=== PATIENT | female | born 1945 | race Two or more races ===

== ENCOUNTER 2021-07-10 16:50 | Inpatient (IN) | payer OTHER ==
[~2021-07-10] VITALS: Ht 165.1 cm; Wt 79.4 kg
[2021-07-10] MEDS ORDERED: GLIMEPIRIDE2 M1 (17:21)
[2021-07-10] MEDS ORDERED: JANUVIA50 MG (17:21)
[2021-07-10] MEDS ORDERED: ACTOS15 MG (17:21)
[2021-07-10] MEDS ORDERED: OFEV150 MG PO (17:22)
[2021-07-10] MEDS ORDERED: CRESTOR40 MG (17:22)
[2021-07-10] MEDS ORDERED: BREO ELLIPTA I1 EACH (17:22)
[2021-07-10] MEDS ORDERED: GRALISE1 EAC1 (17:22)
[2021-07-10] MEDS ORDERED: AIRDUO RESPICL1 EAC1 (17:23)
[2021-07-10] MEDS ORDERED: COZAAR25 MG (17:23)
[2021-07-10] MEDS ORDERED: CARVEDILOL ER40 MG (17:23)
== END 2021-08-11 15:13 | disposition home or self-care (01) | DRG 682 ==
LOC: ER 16:50 → MEDJ 07-11 00:18 → ICU 07-18 22:17 → MEDJ 07-30 14:56 → ICU 07-30 15:27 → MEDJ 07-31 01:17
PROVIDERS: ADMIT Internal Medicine; ATTEND Internal Medicine
PROC: BW21ZZZ Computerized Tomography (CT Scan) of Abdomen and Pelvis (ICD-10-PCS; 2021-07-10)
PROC: B24BYZZ Ultrasonography of Heart with Aorta using Other Contrast (ICD-10-PCS; 2021-07-12)
PROC: 3E0F7SF Introduction of Other Gas into Respiratory Tract, Via Natural or Artificial Opening (ICD-10-PCS; 2021-07-13)
PROC: 02HV33Z Insertion of Infusion Device into Superior Vena Cava, Percutaneous Approach (ICD-10-PCS; 2021-07-14)
PROC: 30243N1 Transfusion of Nonautologous Red Blood Cells into Central Vein, Percutaneous Approach (ICD-10-PCS; 2021-07-16)
PROC: BW24ZZZ Computerized Tomography (CT Scan) of Chest and Abdomen (ICD-10-PCS; 2021-07-17)
PROC: B24BZZZ Ultrasonography of Heart with Aorta (ICD-10-PCS; 2021-07-19)
PROC: 02H633Z Insertion of Infusion Device into Right Atrium, Percutaneous Approach (ICD-10-PCS; principal; 2021-07-24)
PROC: B548ZZA Ultrasonography of Superior Vena Cava, Guidance (ICD-10-PCS; 2021-07-24)
DX: N17.8 Other acute kidney failure (principal); J18.9 Pneumonia, unspecified organism; J80 Acute respiratory distress syndrome; K72.00 Acute and subacute hepatic failure without coma; M62.82 Rhabdomyolysis; I12.0 Hypertensive chronic kidney disease with stage 5 chronic kidney disease or end stage renal disease; N18.6 End stage renal disease; E11.22 Type 2 diabetes mellitus with diabetic chronic kidney disease; D63.1 Anemia in chronic kidney disease; E11.65 Type 2 diabetes mellitus with hyperglycemia; E11.40 Type 2 diabetes mellitus with diabetic neuropathy, unspecified; R53.81 Other malaise; J84.10 Pulmonary fibrosis, unspecified; B97.11 Coxsackievirus as the cause of diseases classified elsewhere; Z79.84 Long term (current) use of oral hypoglycemic drugs; E86.9 Volume depletion, unspecified; Z86.73 Personal history of transient ischemic attack (TIA), and cerebral infarction without residual deficits; Z20.822 Contact with and (suspected) exposure to COVID-19